=== PATIENT | male | born 1990 | race Caucasian/White ===

== ENCOUNTER 2017-12-13 20:48 | Emergency (ER) | payer BC ==
--- NOTE | 2017-12-13 22:42 | EDM.PDOC ---
ED HPI GENERAL MEDICAL PROBLEM - General Chief Complaint: Upper Extremity Injury/Pain Stated Complaint: KNUCKELS ON RT HAND SWOLLEN Time Seen by Provider: 12/13/17 22:39 - History of Present Illness INITIAL COMMENTS - FREE TEXT/NARRATIVE: HISTORY AND PHYSICAL: History of present illness: [] Review of systems: As per history of present illness and below otherwise all systems reviewed and negative. Past medical history: As per history of present illness and as reviewed below otherwise noncontributory. Surgical history: As per history of present illness and as reviewed below otherwise noncontributory. Social history: No reported history of drug or alcohol abuse. Family history: As per history of present illness and as reviewed below otherwise noncontributory. Physical exam: HEENT: Atraumatic, normocephalic, pupils reactive, negative for conjunctival pallor or scleral icterus, mucous membranes moist, throat clear, neck supple, nontender, trachea midline. Lungs: Clear to auscultation, breath sounds equal bilaterally, chest nontender. Heart: S1S2, regular, negative for clicks, rubs, or JVD. Abdomen: Soft, nondistended, nontender. Negative for masses or hepatosplenomegaly. Negative for costovertebral tenderness. Pelvis: Stable nontender. Genitourinary: Deferred. Rectal: Deferred. Extremities: Right hand has some small discoloration over the knuckle of the dorsal aspect third digit right hand no erythema no fluctuance Neuro: Awake, alert, oriented. Cranial nerves II through XII unremarkable. Cerebellum unremarkable. Motor and sensory unremarkable throughout. Exam nonfocal. Diagnostics: X-ray right hand Therapeutics: None Impression: 1 right hand pain Definitive disposition and diagnosis as appropriate pending reevaluation and review of above. right hand Pain Score (Numeric/FACES): 6 - Related Data Allergies Allergy/AdvReac Type Severity Reaction Status Date / Time cough medicine Allergy Hives Uncoded 12/13/17 21:04 Home Meds: Home Meds Pantoprazole [ProTONIX] 40 mg PO DAILY 12/13/17 [History] buPROPion [Wellbutrin] 0 mg PO DAILY 12/13/17 [History] Past Medical History - Past Health History Medical/Surgical History: Denies Medical/Surgical History Gastrointestinal History: Reports: GERD Musculoskeletal History: Reports: Other (See Below) Other Musculoskeletal History: right hand in jury, no broken bones - Infectious Disease History Infectious Disease History: Reports: Chicken Pox - Past Surgical History GI Surgical History: Reports: None Musculoskeletal Surgical History: Reports: None Social & Family History - Family History Family Medical History: Noncontributory - Tobacco Use Smoking Status *Q: Former Smoker Used Tobacco, but Quit: Yes Month/Year Tobacco Last Used: a month ago Second Hand Smoke Exposure: No - Caffeine Use Caffeine Use: Reports: Soda - Recreational Drug Use Recreational Drug Use: No Review of Systems - Review of Systems Review Of Systems: ROS reveals no pertinent complaints other than HPI. ED EXAM, GENERAL - Physical Exam Exam: See Below (dictation) Course - Vital Signs Last Recorded V/S: Last Vital Signs Temp 37.2 C 12/13/17 21:00 Pulse 86 12/13/17 21:00 Resp 18 12/13/17 21:00 BP 141/88 H 12/13/17 21:00 Pulse Ox 97 12/13/17 21:00 - Orders/Labs/Meds Orders: Active Orders 24 hr Category Date Time Status Hand Comp Min 3V Rt [CR] Stat Exams 12/13/17 21:12 Ordered Departure - Departure Time of Disposition: 22:41 Disposition: Home, Self-Care 01 Condition: Good Clinical Impression: Hand pain - Discharge Information *PRESCRIPTION DRUG MONITORING PROGRAM REVIEWED*: Not Applicable *COPY OF PRESCRIPTION DRUG MONITORING REPORT IN PATIENT [place]: Not Applicable Referrals: PCP,None [Primary Care Provider] - Additional Instructions: The following information is given to patients seen in the emergency department who are being discharged to home. This information is to outline your options for follow-up care. We provide all patients seen in our emergency department with a follow-up referral. The need for follow-up, as well as the timing and circumstances, are variable depending upon the specifics of your emergency department visit. If you don't have a primary care physician on staff, we will provide you with a referral. We always advise you to contact your personal physician following an emergency department visit to inform them of the circumstance of the visit and for follow-up with them and/or the need for any referrals to a consulting specialist. The emergency department will also refer you to a specialist when appropriate. This referral assures that you have the opportunity for followup care with a specialist. All of these measure are taken in an effort to provide you with optimal care, which includes your followup. Under all circumstances we always encourage you to contact your private physician who remains a resource for coordinating your care. When calling for followup care, please make the office aware that this follow-up is from your recent emergency room visit. If for any reason you are refused follow-up, please contact the [facility] emergency department at and asked to speak to the emergency department charge nurse. [facility] [address] [place] [id number] Motrin/Tylenol as directed follow-up hand surgery above call schedule routine appointment return as needed as discussed - My Orders Last 24 Hours: My Active Orders 12/13/17 21:12 Hand Comp Min 3V Rt [CR] Stat - Assessment/Plan Last 24 Hours: My Active Orders 12/13/17 21:12 Hand Comp Min 3V Rt [CR] Stat
--- NOTE | 2017-12-14 20:53 | CR ---
EXAM DATE: 12/13/17 PATIENT'S AGE: 27 Patient: SUKHWINDER JORDAN Facility: [place], [place] Site . Site : 1990 Study: XRay Extremity Right hand [id number]/23/2018 9:29:53 PM Ordering Physician: marjorie Final Report: INDICATION: Pain and swelling for 1 day. No known injury. TECHNIQUE: Three views of the right hand. FINDINGS: Normal skeletal mineralization. No fracture, dislocation, erosion, or intrinsic skeletal lesion. IMPRESSION: Negative right hand. Dictated by Wade Haro MD @ Dec 13 2017 9:37PM (Electronic Signature) Report Signed by Proxy. ALYSSA
== END 2017-12-13 22:56 | disposition home or self-care (01) ==
LOC: MW.ED 20:48
DX: M79.641 Pain in right hand (principal); K21.9 Gastro-esophageal reflux disease without esophagitis; Z87.891 Personal history of nicotine dependence; Z79.899 Other long term (current) drug therapy; Z88.8 Allergy status to other drugs, medicaments and biological substances
CPT/HCPCS: 73130-26-RT; 73130-RT; 99283

== ENCOUNTER 2018-10-21 05:43 | Emergency (ER) | payer BC ==
[2018-10-21] MEDS ORDERED: Albuterol/Ipratropium 3.0-0.5 MG/3 ML Neb Soln NEB ONE (06:06)
[2018-10-21] MEDS ORDERED: Sodium Chloride 0.9% 10 ML Syringe FLUSH PRN (06:06)
[2018-10-21] MEDS ORDERED: Sodium Chloride 0.9% 1,000 ML IV ONE ×2 (06:06→07:08)
[2018-10-21] MEDS ORDERED: Sodium Chloride 0.9% 2.5 ML Syringe FLUSH PRN (06:06)
--- NOTE | 2018-10-21 06:17 | EDM.PDOC ---
ED HPI GENERAL MEDICAL PROBLEM - General Chief Complaint: General Stated Complaint: blurred vision Time Seen by Provider: 10/21/18 05:51 - History of Present Illness INITIAL COMMENTS - FREE TEXT/NARRATIVE: HISTORY AND PHYSICAL: History of present illness: The patient is a 27-year-old male with a history of pectus excavatum but no other significant medical history who does have a smoking history of tobacco and presents with symptoms that started approximately 13-1/2 hours ago. 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 Initially he felt fine and then approximately 2 hours later at 4:30 PM he started having a dry hacking cough and had global weakness and felt more sleepy than usual. He said he had no focal weakness and was not lightheaded or dizzy and did not feel like he was going to pass out or black out. He had no headache or dizziness chest pain shortness of breath abdominal pain but did have some nausea. He said that the symptom lasted about 5 or 6 hours and then for about one hour she felt completely normal. Approximately 11 PM to 12 midnight, 6 hours ago, he started having visual changes which he describes as pulsating changes from clear vision to blurry vision which he believes was in both eyes. He said he did not test each eye individually. He had no eye pain no headache and again no lightheadedness dizziness he did have some nausea. He says that he is supposed to wear glasses all the time for both near and far and he does not wear them because they're scratched and he does not know his baseline visual exam. He says that he did not see spots or have any visual field disturbances but just that his eyes and vision felt blurry would pulsate between blurriness and clearness. He also says that he has been having trouble finding words but not slurring his speech since the same time of 11 PM to 12 midnight .He says that currently in the ED now he feels that these visual changes have improved but he still feels like his vision is blurred on and off but is much better. Again he is not sure if one eye is worse than the other as he did not check it. He also says that his difficulty finding words, not stuttering speech, has also significantly improved and he overall says that he did not want to come to the ED but work made him come here. He keeps insisting that all the symptoms are improving and almost back to baseline. He also says that for the last 2 weeks he has been feeling somewhat off balance but is not falling passing out or blacking out and does not have any focal weakness. The patient does not describe any focal weakness in his extremities and he has no midline neck or back pain. He does say that for the last few hours he has felt some tingling in his right digits 4 and 5 but not in the hand or in the upper extremity. He doesn 't feel any weakness in his hands. He has no complaints of any pain and has had no recent trauma. He says that he does feel generalized weakness but no nausea currently. He says he is still having the cough and it is nonproductive and he has not had any recent fevers or chills. He says he has been eating and drinking normally but since waking at 2:30 PM he has not had much to eat or drink because of the nausea earlier. Review of systems: As per history of present illness and below otherwise all systems reviewed and negative. Past medical history: As per history of present illness and as reviewed below otherwise noncontributory. Surgical history: As per history of present illness and as reviewed below otherwise noncontributory. Social history: No reported history of drug or alcohol abuse. Family history: As per history of present illness and as reviewed below otherwise noncontributory. Physical exam: General: Well-developed well-nourished man who is nontoxic who ambulated into the ED without any distress. He is speaking clearly without any slurred speech , stuttering speech but is very slow with his answers and very deliberate . He is cooperative and interactive. He has overall appearance of looking very fatigued and somewhat drained. Vital signs are noted by me and a dry hacking cough is appreciated on my evaluation. HEENT: Atraumatic, normocephalic, pupils reactive, EOMs are intact, sclera are mildly injected bilaterally negative for conjunctival pallor or scleral icterus , mucous membranes moist, throat clear, neck supple, nontender, trachea midline. There is no cervical adenopathy or nuchal rigidity. On gross visual exam by me covering each eye individually the patient does subjectively say that the right eye is blurry or than the left eye currently. Lungs: Clear to auscultation with some expiratory wheezing at the bases bilaterally but no work of breathing, breath sounds equal bilaterally, chest nontender. Pectus excavatum is appreciated on physical exam Heart: S1S2, regular rate and rhythm no overt murmurs, negative for clicks, rubs , or JVD. Abdomen: Soft, nondistended, nontender. Negative for masses or hepatosplenomegaly. Negative for costovertebral tenderness. Pelvis: Stable nontender. Genitourinary: Deferred. Rectal: Deferred. Extremities: Atraumatic, negative for cords or calf pain. Neurovascular unremarkable. Full range of motion without defects or deficits no edema Neuro: Awake, alert, oriented. Cranial nerves II through XII unremarkable. Cerebellum unremarkable. Motor and sensory unremarkable throughout. Exam nonfocal. Speech is intact and there is no drift. Gait and heel to pickard finger to nose is intact. Dorsi and plantar flexion is intact 5/5 inclusive of the great toe bilaterally and stadium attendant are strong and equal bilaterally 5/5 Back: There are no midline step-offs tenderness defects of the cervical thoracic or lumbar spine and no posterior rib tenderness. Diagnostics: EKG CBC CMP INR troponin TSH UA with reflex UDS alcohol level visual acuity CT scan of the head chest x-ray NIHSS Therapeutics: IV O2 monitor IV fluids aspirin Visual acuity is documented per nursing as left eye 20/40 and right eye 20/70; he does not have his corrective lenses here in the ED Patient's overall symptoms started at 4:30 PM approximately and the visual issues and speech/word finding symptoms started at approximately 11pm-12 midnight p.m., 6 hours prior to ED evaluation. Case was not called as a stroke code because of the vagueness of the symptoms and the patient having a protracted presentation.It is also unclear the extent of the visual issues as the patient is not wearing his corrective lenses and does not have them with him. His NIHSS per nursing is 0 and the patient is saying that his symptoms are improving. 0740: TESTING results were discussed with the patient and we are currently awaiting his urine testing. The patient has been advised that I will involve Dr. Wilkins our neurologist and she comes on-call in 20 minutes and I will bounce his case off of her to see if she thinks that this mandates further testing or admission to the hospital. The patient is now telling me that he would like to try to go home to [place] and he was planning on doing that today. He is willing to wait until I have a discussion with Dr. Wilkins to make the decision whether or not he wants to pursue more testing here and/or admission pending her input 0805: This case was discussed with Dr. Wilkins our neurologist who does not feel that the patient mandates emergent MRI testing from the ED nor admission to hospital. She says that the symptoms are very vague and scattered and there is no localization at this point. Patient is aware of this conversation and she has agreed to follow this patient in the clinic I will give him appropriate referral. He continues to say that his symptoms are almost completely resolved. I've advised him on reasons to return to the ED Impression: Episode of visual changes/speech changes, generalized weakness, improved Definitive disposition and diagnosis as appropriate pending reevaluation and review of above. - Related Data Allergies Allergy/AdvReac Type Severity Reaction Status Date / Time cough medicine Allergy Hives Uncoded 10/21/18 05:53 Home Meds: Home Meds Pantoprazole [ProTONIX] 40 mg PO DAILY 12/13/17 [History] Past Medical History - Past Health History Medical/Surgical History: Denies Medical/Surgical History Gastrointestinal History: Reports: GERD Musculoskeletal History: Reports: Other (See Below) Other Musculoskeletal History: right hand in jury, no broken bones - Infectious Disease History Infectious Disease History: Reports: Chicken Pox - Past Surgical History GI Surgical History: Reports: None Musculoskeletal Surgical History: Reports: None Social & Family History - Family History Family Medical History: Noncontributory - Caffeine Use Caffeine Use: Reports: Soda ED ROS GENERAL - Review of Systems Review Of Systems: ROS reveals no pertinent complaints other than HPI. ED EXAM, GENERAL - Physical Exam Exam: See Below (See dictation) Course - Vital Signs Last Recorded V/S: Last Vital Signs Temp 36.3 C 10/21/18 05:48 Pulse 82 10/21/18 07:04 Resp 11 L 10/21/18 07:04 BP 124/82 10/21/18 07:04 Pulse Ox 95 10/21/18 07:04 - Orders/Labs/Meds Orders: Active Orders 24 hr Category Date Time Status Cardiac Monitoring [RC] . DIRECTED Care 10/21/18 06:04 Active Communication Order [RC] STAT Care 10/21/18 06:05 Active EKG Documentation Completion [RC] STAT Care 10/21/18 06:04 Active Oxygen Therapy, ED [RC] ASDIRECTED Care 10/21/18 06:04 Active Pulse Oximetry [RC] ASDIRECTED Care 10/21/18 06:04 Active RT Aerosol Therapy [RC] ASDIRECTED Care 10/21/18 06:06 Active Sodium Chloride 0.9% [Saline Flush] Med 10/21/18 06:06 Active 10 ml FLUSH ASDIRECTED PRN Sodium Chloride 0.9% [Saline Flush] Med 10/21/18 06:06 Active 2.5 ml FLUSH ASDIRECTED PRN Saline Lock Insert [OM.PC] Stat Oth 10/21/18 06:04 Ordered Medication Orders Sodium Chloride (Saline Flush) 10 ml FLUSH ASDIRECTED PRN PRN Reason: Keep Vein Open Last Admin: 10/21/18 06:58 Dose: 10 ml Sodium Chloride (Saline Flush) 2.5 ml FLUSH ASDIRECTED PRN PRN Reason: Keep Vein Open Last Admin: 10/21/18 06:58 Dose: 2.5 ml Labs: Laboratory Tests 10/21/18 10/21/18 10/21/18 Range/Units 06:10 06:10 06:10 WBC 12.25 H (4.0-11.0) K/uL RBC 5.71 (4.50-5.90) M/uL Hgb 17.6 H (13.0-17.0) g/dL Hct 50.4 H (38.0-50.0) % MCV 88.3 (80.0-98.0) fL MCH 30.8 (27.0-32.0) pg MCHC 34.9 (31.0-37.0) g/dL RDW Std Deviation 43.4 (28.0-62.0) fl RDW Coeff of Khoi 14 (11.0-15.0) % Plt Count 175 (150-400) K/uL MPV 12.40 H (7.40-12.00) fL Neut % (Auto) 55.7 (48.0-80.0) % Lymph % (Auto) 33.1 (16.0-40.0) % [place] % (Auto) 9.0 (0.0-15.0) % Eos % (Auto) 1.8 (0.0-7.0) % Baso % (Auto) 0.4 (0.0-1.5) % Neut # (Auto) 6.8 H (1.4-5.7) K/uL Lymph # (Auto) 4.1 H (0.6-2.4) K/uL [place] # (Auto) 1.1 H (0.0-0.8) K/uL Eos # (Auto) 0.2 (0.0-0.7) K/uL Baso # (Auto) 0.1 (0.0-0.1) K/uL Nucleated RBC % 0.0 /100WBC Nucleated RBCs # 0 K/uL INR Sodium (136-148) mmol/L Potassium (3.5-5.1) mmol/L Chloride (98-107) mmol/L Carbon Dioxide (21.0-32.0) mmol/L BUN (7.0-18.0) mg/dL Creatinine (0.8-1.3) mg/dL Est Cr Clr Drug Dosing mL/min Estimated GFR (MDRD) ml/min Glucose (74-106) mg/dL Calcium (8.5-10.1) mg/dL Total Bilirubin (0.2-1.0) mg/dL AST (15-37) IU/L ALT (14-63) IU/L Alkaline Phosphatase (46-116) U/L Troponin I (0.000-0.056) ng/mL Total Protein (6.4-8.2) g/dL Albumin (3.4-5.0) g/dL Globulin (2.6-4.0) g/dL Albumin/Globulin Ratio (0.9-1.6) TSH 3rd Generation (0.36-3.74) uIU/mL Urine Color YELLOW Urine Appearance CLEAR Urine pH 6.0 (5.0-8.0) Ur Specific [place] <= 1.005 (1.001-1.035) Urine Protein NEGATIVE (NEGATIVE) mg/dL Urine Glucose (UA) NEGATIVE (NEGATIVE) mg/dL Urine Ketones NEGATIVE (NEGATIVE) mg/dL Urine Occult Blood NEGATIVE (NEGATIVE) Urine Nitrite NEGATIVE (NEGATIVE) Urine Bilirubin NEGATIVE (NEGATIVE) Urine Urobilinogen 0.2 (<2.0) EU/dL Ur Leukocyte Esterase NEGATIVE (NEGATIVE) Urine Opiates Screen NEGATIVE (NEGATIVE) Ur Oxycodone Screen NEGATIVE (NEGATIVE) Urine Methadone Screen NEGATIVE (NEGATIVE) Ur Barbiturates Screen NEGATIVE (NEGATIVE) Ur Phencyclidine Scrn NEGATIVE (NEGATIVE) Ur Amphetamine Screen NEGATIVE (NEGATIVE) U Methamphetamines Scrn NEGATIVE (NEGATIVE) U Benzodiazepines Scrn NEGATIVE (NEGATIVE) U Cocaine Metab Screen NEGATIVE (NEGATIVE) U Marijuana (THC) Screen NEGATIVE (NEGATIVE) Ethyl Alcohol mg/dL 10/21/18 10/21/18 Range/Units 06:10 06:10 WBC (4.0-11.0) K/uL RBC (4.50-5.90) M/uL Hgb (13.0-17.0) g/dL Hct (38.0-50.0) % MCV (80.0-98.0) fL MCH (27.0-32.0) pg MCHC (31.0-37.0) g/dL RDW Std Deviation (28.0-62.0) fl RDW Coeff of Khoi (11.0-15.0) % Plt Count (150-400) K/uL MPV (7.40-12.00) fL Neut % (Auto) (48.0-80.0) % Lymph % (Auto) (16.0-40.0) % [place] % (Auto) (0.0-15.0) % Eos % (Auto) (0.0-7.0) % Baso % (Auto) (0.0-1.5) % Neut # (Auto) (1.4-5.7) K/uL Lymph # (Auto) (0.6-2.4) K/uL [place] # (Auto) (0.0-0.8) K/uL Eos # (Auto) (0.0-0.7) K/uL Baso # (Auto) (0.0-0.1) K/uL Nucleated RBC % /100WBC Nucleated RBCs # K/uL INR 1.10 Sodium 142 (136-148) mmol/L Potassium 4.0 (3.5-5.1) mmol/L Chloride 105 (98-107) mmol/L Carbon Dioxide 27.4 (21.0-32.0) mmol/L BUN 10 (7.0-18.0) mg/dL Creatinine 1.1 (0.8-1.3) mg/dL Est Cr Clr Drug Dosing 121.63 mL/min Estimated GFR (MDRD) > 60.0 ml/min Glucose 117 H (74-106) mg/dL Calcium 9.3 (8.5-10.1) mg/dL Total Bilirubin 0.3 (0.2-1.0) mg/dL AST 14 L (15-37) IU/L ALT 22 (14-63) IU/L Alkaline Phosphatase 73 (46-116) U/L Troponin I < 0.050 (0.000-0.056) ng/mL Total Protein 8.0 (6.4-8.2) g/dL Albumin 4.5 (3.4-5.0) g/dL Globulin 3.5 (2.6-4.0) g/dL Albumin/Globulin Ratio 1.3 (0.9-1.6) TSH 3rd Generation 2.94 (0.36-3.74) uIU/mL Urine Color Urine Appearance Urine pH (5.0-8.0) Ur Specific [place] (1.001-1.035) Urine Protein (NEGATIVE) mg/dL Urine Glucose (UA) (NEGATIVE) mg/dL Urine Ketones (NEGATIVE) mg/dL Urine Occult Blood (NEGATIVE) Urine Nitrite (NEGATIVE) Urine Bilirubin (NEGATIVE) Urine Urobilinogen (<2.0) EU/dL Ur Leukocyte Esterase (NEGATIVE) Urine Opiates Screen (NEGATIVE) Ur Oxycodone Screen (NEGATIVE) Urine Methadone Screen (NEGATIVE) Ur Barbiturates Screen (NEGATIVE) Ur Phencyclidine Scrn (NEGATIVE) Ur Amphetamine Screen (NEGATIVE) U Methamphetamines Scrn (NEGATIVE) U Benzodiazepines Scrn (NEGATIVE) U Cocaine Metab Screen (NEGATIVE) U Marijuana (THC) Screen (NEGATIVE) Ethyl Alcohol <3 mg/dL Meds: Medications Generic Name Dose Route Start Last Admin Trade Name Freq PRN Reason Stop Dose Admin Sodium Chloride 10 ml 10/21/18 06:06 10/21/18 06:58 Saline Flush FLUSH 10 ml ASDIRECTED PRN Administration Keep Vein Open Sodium Chloride 2.5 ml 10/21/18 06:06 10/21/18 06:58 Saline Flush FLUSH 2.5 ml ASDIRECTED PRN Administration Keep Vein Open Discontinued Medications Generic Name Dose Route Start Last Admin Trade Name Oumou PRN Reason Stop Dose Admin Albuterol/Ipratropium 3 ml 10/21/18 06:06 10/21/18 06:20 Duoneb 3.0-0.5 Mg/3 Ml NEB 10/21/18 06:07 3 ml ONETIME ONE Administration Aspirin 325 mg 10/21/18 07:04 Aspirin PO 10/21/18 07:05 ONETIME ONE Sodium Chloride 1,000 mls @ 999 mls/hr 10/21/18 06:06 10/21/18 06:27 Normal Saline IV 10/21/18 07:06 999 mls/hr STAT ONE Administration Sodium Chloride 1,000 mls @ 999 mls/hr 10/21/18 07:08 Normal Saline IV 10/21/18 08:08 STAT ONE Departure - Departure Time of Disposition: 08:17 Disposition: Home, Self-Care 01 Condition: Good Clinical Impression: Visual changes, Generalized weakness - Discharge Information Referrals: PCP,None [Primary Care Provider] - Forms: ED Department Discharge Additional Instructions: The following information is given to patients seen in the emergency department who are being discharged to home. This information is to outline your options for follow-up care. We provide all patients seen in our emergency department with a follow-up referral. The need for follow-up, as well as the timing and circumstances, are variable depending upon the specifics of your emergency department visit. If you don't have a primary care physician on staff, we will provide you with a referral. We always advise you to contact your personal physician following an emergency department visit to inform them of the circumstance of the visit and for follow-up with them and/or the need for any referrals to a consulting specialist. The emergency department will also refer you to a specialist when appropriate. This referral assures that you have the opportunity for followup care with a specialist. All of these measure are taken in an effort to provide you with optimal care, which includes your followup. Under all circumstances we always encourage you to contact your private physician who remains a resource for coordinating your care. When calling for followup care, please make the office aware that this follow-up is from your recent emergency room visit. If for any reason you are refused follow-up, please contact the [facility] emergency department at and ask to speak to the emergency department charge nurse. [facility] Primary care- Internal Medicine and [facility] [address] [place] [id number] [facility] Specialty care-Neurology Professional Building [address] [place] [address], [address] [place] [address] Please contact the clinic and schedule a follow-up with Dr. Wilkins as we discussed using resources given to above. Push hydration and return to ER as needed and as discussed. Please go and get an eye exam and get new glasses as we discussed. - My Orders Last 24 Hours: My Active Orders 10/21/18 06:04 Cardiac Monitoring [RC] . DIRECTED EKG Documentation Completion [RC] STAT Oxygen Therapy, ED [RC] ASDIRECTED Pulse Oximetry [RC] ASDIRECTED Saline Lock Insert [OM.PC] Stat 10/21/18 06:05 Communication Order [RC] STAT 10/21/18 06:06 RT Aerosol Therapy [RC] ASDIRECTED Sodium Chloride 0.9% [Saline Flush] 10 ml FLUSH ASDIRECTED PRN Sodium Chloride 0.9% [Saline Flush] 2.5 ml FLUSH ASDIRECTED PRN - Assessment/Plan Last 24 Hours: My Active Orders 10/21/18 06:04 Cardiac Monitoring [RC] . DIRECTED EKG Documentation Completion [RC] STAT Oxygen Therapy, ED [RC] ASDIRECTED Pulse Oximetry [RC] ASDIRECTED Saline Lock Insert [OM.PC] Stat 10/21/18 06:05 Communication Order [RC] STAT 10/21/18 06:06 RT Aerosol Therapy [RC] ASDIRECTED Sodium Chloride 0.9% [Saline Flush] 10 ml FLUSH ASDIRECTED PRN Sodium Chloride 0.9% [Saline Flush] 2.5 ml FLUSH ASDIRECTED PRN
[2018-10-21 06:46] LABS: CHLORIDE,CL 105 mmol/L (98-107); SODIUM,NA 142 mmol/L (136-148)
--- NOTE | 2018-10-21 07:01 | CR ---
INDICATION: Chest pain, shortness of breath. COMPARISON: none TECHNIQUE: Two view chest. FINDINGS: The lungs are clear. There is no evident pneumothorax. The heart, mediastinum and pulmonary vessels are of normal size. There is no evidence of pleural fluid. IMPRESSION: Negative chest. Dictated by Mando Mulligan MD @ Oct 21 2018 6:58AM Signed by Dr. Mando Mulligan @ Oct 21 2018 6:59AM
--- NOTE | 2018-10-21 07:03 | CT ---
INDICATION: Pain COMPARISON: none TECHNIQUE: A CT volumetric acquisition was performed of the brain without IV contrast. FINDINGS: There is no evidence of a subdural or epidural hematoma. There is no evidence of subarachnoid hemorrhage or intraparenchymal bleeding. The CT images reveal a normal appearance of the cerebral ventricles and basal cisterns. There is no evidence of localized tissue infarction or mass effect. There is normal angela white matter differentiation. The mastoid air cells and middle ear cavities are clear. The calvarium appears intact. There is normal aeration of the visualized paranasal sinuses. IMPRESSION: Negative head CT. Please note that all CT scans at this facility use dose modulation, iterative reconstruction, and/or weight-based dosing when appropriate to reduce radiation dose to as low as reasonably achievable. Dictated by Mando Mulligan MD @ Oct 21 2018 6:59AM Signed by Dr. Mando Mulligan @ Oct 21 2018 7:01AM
[2018-10-21] MEDS ORDERED: Aspirin 325 MG Tab PO ONE (07:04)
== END 2018-10-21 08:27 | disposition home or self-care (01) ==
LOC: MW.ED 05:43
DX: H53.8 Other visual disturbances (principal); R53.1 Weakness; K21.9 Gastro-esophageal reflux disease without esophagitis; Z79.899 Other long term (current) drug therapy; Z88.8 Allergy status to other drugs, medicaments and biological substances
CPT/HCPCS: 36415; 70450; 71046; 80053; 80305; 81003; 84443; 84484; 85025; 85610; 93005; 94640; 96360; 99285; A9270; G0480; J7040; J7620-GY